=== PATIENT | female | born 1960 | race Caucasian/White ===

== ENCOUNTER 2022-09-23 09:54 | Emergency (ER) | payer OTHER ==
[~2022-09-23] VITALS: Ht 160 cm; Wt 79.8 kg
[2022-09-23] MEDS ORDERED: NS 1,000 ML IV ONE (10:30)
[2022-09-23] MEDS ORDERED: ONDANSETRON 4MG 2ML VIAL IV ONE ×2 (10:30→18:20)
[2022-09-23] MEDS: MORPHINE 4 MG/ML 1ML VIAL IV PRN ×3 (10:44→23:15)
[2022-09-23 10:53] LABS: BASO % 0.2 % (0.0-1.0); HEMATOCRIT 41.2 % (36.0-47.0); HEMOGLOBIN 14.1 g/dl (12.0-15.5); LYMPH # 1.1 10^3/uL (1.5-5.0); LYMPH % 17.7 % (24.0-44.0); MEAN CORPUSCULAR HEMOGLOBIN 31.5 pg (27.0-33.0); MEAN CORPUSCULAR HGB CONC 34.2 g/dl (32.0-36.5); MEAN CORPUSCULAR VOLUME 92.2 fl (80.0-96.0); MONO # 0.4 10^3/uL (0.0-0.8); MONO % 6.9 % (2.0-8.0); NEUTROPHILS # 4.5 10^3/uL (1.5-8.5); NEUTROPHILS % 74.5 % (36.0-66.0); PLATELET COUNT, AUTOMATED 214 10^3/uL (150-450); RED BLOOD COUNT 4.47 10^6/uL (4.00-5.40); WHITE BLOOD COUNT 6.1 10^3/uL (4.0-10.0)
[2022-09-23] MEDS ORDERED: ISOVUE-370 76% 100ML VIAL As Ordered ONE (11:13)
[2022-09-23 11:18] LABS: INR 0.93; PROTHROMBIN TIME 12.1 SECONDS (12.5-14.5)
[2022-09-23 11:19] LABS: LIPASE 39 U/L (12-53); PARTIAL THROMBOPLASTIN TIME 24.9 SECONDS (24.8-34.2)
[2022-09-23 11:21] LABS: ALKALINE PHOSPHATASE 205 U/L (46-116); ALT/SGPT 690 U/L (7.0-40); AST/SGOT 215 U/L (<34); BILIRUBIN,TOTAL 1.7 MG/DL (0.3-1.2); BLOOD UREA NITROGEN 8 MG/DL (9-23); CALCIUM LEVEL 9.4 MG/DL (8.3-10.6); CARBON DIOXIDE LEVEL 24 MMOL/L (20-31); CHLORIDE LEVEL 104 MMOL/L (98-107); CK-MB VALUE MASS < 1.0 NG/ML (<3.6); CPK CREATINE PHOSPHOKINASE 65 U/L (34-145); GLOMERULAR FILTRATION RATE > 60.0 (>45); GLUCOSE, FASTING 105 MG/DL (74-106); MB/CK RELATIVE INDEX 1.53 (< OR =4); POTASSIUM SERUM 3.7 MMOL/L (3.5-5.1); SODIUM LEVEL 137 MMOL/L (136-145)
[2022-09-23 11:22] LABS: THYROID STIMULATING HORMONE 2.672 uIU/ML (0.55-4.78)
[2022-09-23 11:31] LABS: RSV AMPLIFICATION NEGATIVE (NEGATIVE)
[2022-09-23] MEDS ORDERED: MED REC IN PROGRESS XX SCH (11:40)
[2022-09-23] MEDS ORDERED: HOME MED LIST COMPLETE! XX SCH (12:05)
[2022-09-23 12:10] LABS: CK-MB VALUE MASS < 1.0 NG/ML (<3.6)
[2022-09-23 12:12] LABS: CPK CREATINE PHOSPHOKINASE 47 U/L (34-145); MB/CK RELATIVE INDEX 2.12 (< OR =4)
[2022-09-23] MEDS ORDERED: PIPERACILLIN/TAZOBACTAM SOD 4.5 GM in D5W MINI-BAG PLUS 50 ML IV ONE ×2 (12:50→19:50)
[2022-09-23] MEDS ORDERED: D5W/0.45% SODIUM CHLORIDE 1,000 ML IV ONE (13:05)
[2022-09-23] MEDS ORDERED: MORPHINE 2 MG/ML 1ML VIAL IV ONE (17:10)
[2022-09-23] MEDS ORDERED: PIPERACILLIN/TAZOBACTAM SOD 3.375 GM in D5W MINI-BAG PLUS 50 ML IV SCH (21:15)
[2022-09-23] MEDS ORDERED: NS 1,000 ML IV SCH (21:25)
[2022-09-23 23:14] LABS: BASO % 0.3 % (0.0-1.0); EOS % 0.3 % (0.0-3.0); HEMATOCRIT 37.8 % (36.0-47.0); HEMOGLOBIN 12.4 g/dl (12.0-15.5); LYMPH # 1.2 10^3/uL (1.5-5.0); LYMPH % 18.9 % (24.0-44.0); MEAN CORPUSCULAR HEMOGLOBIN 31.3 pg (27.0-33.0); MEAN CORPUSCULAR HGB CONC 32.8 g/dl (32.0-36.5); MEAN CORPUSCULAR VOLUME 95.5 fl (80.0-96.0); MONO # 0.6 10^3/uL (0.0-0.8); MONO % 9.9 % (2.0-8.0); NEUTROPHILS # 4.3 10^3/uL (1.5-8.5); NEUTROPHILS % 70.1 % (36.0-66.0); PLATELET COUNT, AUTOMATED 184 10^3/uL (150-450); RED BLOOD COUNT 3.96 10^6/uL (4.00-5.40); WHITE BLOOD COUNT 6.1 10^3/uL (4.0-10.0)
[2022-09-23 23:35] LABS: PROCALCITONIN <0.04 ng/ml
[2022-09-23 23:39] LABS: ALBUMIN 3.3 G/DL (3.2-5.2); ALKALINE PHOSPHATASE 163 U/L (46-116); ALT/SGPT 502 U/L (7.0-40); AST/SGOT 122 U/L (<34); BILIRUBIN,DIRECT 0.8 MG/DL (<0.4); BILIRUBIN,TOTAL 1.5 MG/DL (0.3-1.2); BLOOD UREA NITROGEN < 5 MG/DL (9-23); CALCIUM LEVEL 8.4 MG/DL (8.3-10.6); CARBON DIOXIDE LEVEL 26 MMOL/L (20-31); CHLORIDE LEVEL 108 MMOL/L (98-107); CREATININE FOR GFR 0.52 MG/DL (0.55-1.30); GLOMERULAR FILTRATION RATE > 60.0 (>45); GLUCOSE, FASTING 120 MG/DL (74-106); POTASSIUM SERUM 3.7 MMOL/L (3.5-5.1); SODIUM LEVEL 142 MMOL/L (136-145); TOTAL PROTEIN 5.7 G/DL (5.7-8.2)
[2022-09-24] MEDS ORDERED: PIPERACILLIN/TAZOBACTAM SOD 3.375 GM in D5W MINI-BAG PLUS 50 ML IV SCH (02:00)
[2022-09-24 06:43] LABS: BASO % 0.2 % (0.0-1.0); EOS # 0.1 10^3/uL (0.0-0.5); EOS % 0.8 % (0.0-3.0); HEMATOCRIT 37.7 % (36.0-47.0); HEMOGLOBIN 12.4 g/dl (12.0-15.5); LYMPH % 16.9 % (24.0-44.0); MEAN CORPUSCULAR HEMOGLOBIN 31.6 pg (27.0-33.0); MEAN CORPUSCULAR HGB CONC 32.9 g/dl (32.0-36.5); MEAN CORPUSCULAR VOLUME 96.2 fl (80.0-96.0); MONO # 0.5 10^3/uL (0.0-0.8); MONO % 8.3 % (2.0-8.0); NEUTROPHILS # 4.5 10^3/uL (1.5-8.5); NEUTROPHILS % 73.5 % (36.0-66.0); PLATELET COUNT, AUTOMATED 166 10^3/uL (150-450); RED BLOOD COUNT 3.92 10^6/uL (4.00-5.40); WHITE BLOOD COUNT 6.1 10^3/uL (4.0-10.0)
[2022-09-24 07:03] LABS: ALBUMIN 3.1 G/DL (3.2-5.2); ALKALINE PHOSPHATASE 152 U/L (46-116); ALT/SGPT 452 U/L (7.0-40); AST/SGOT 102 U/L (<34); BILIRUBIN,DIRECT 0.8 MG/DL (<0.4); BILIRUBIN,TOTAL 1.4 MG/DL (0.3-1.2); BLOOD UREA NITROGEN 6 MG/DL (9-23); CALCIUM LEVEL 8.4 MG/DL (8.3-10.6); CARBON DIOXIDE LEVEL 27 MMOL/L (20-31); CHLORIDE LEVEL 107 MMOL/L (98-107); CREATININE FOR GFR 0.51 MG/DL (0.55-1.30); GLOMERULAR FILTRATION RATE > 60.0 (>45); GLUCOSE, FASTING 99 MG/DL (74-106); POTASSIUM SERUM 3.9 MMOL/L (3.5-5.1); SODIUM LEVEL 140 MMOL/L (136-145); TOTAL PROTEIN 5.6 G/DL (5.7-8.2)
[2022-09-24] MEDS: MORPHINE 4 MG/ML 1ML VIAL IV PRN (07:55)
[2022-09-24 08:05] VITALS: TEMP 98
[2022-09-24 08:45] VITALS: BP 132/78; O2SAT 99
== END 2022-09-24 09:07 | disposition short-term general hospital (02) ==
LOC: M ED 09:54
DX: K80.50 Calculus of bile duct without cholangitis or cholecystitis without obstruction (principal); Z85.038 Personal history of other malignant neoplasm of large intestine; R10.9 Unspecified abdominal pain
CPT/HCPCS: 71045; 71275; 74177; 74181; 76705; 80047; 80048; 80076; 82550; 82553; 83605; 83690; 83880; 84145; 84439; 84443; 84484; 85025; 85610; 85730; 87040; 87631; 93005; 93041; 94760; 96365; 96366; 96367; 99285; J2405; J2543; Q9967